=== PATIENT | male | born 1995 | race Caucasian/White ===

== ENCOUNTER 2017-08-15 20:41 | Emergency (ER) | payer SELFPAY ==
[~2017-08-15] VITALS: Ht 167.6 cm; Wt 74.0 kg
[~2017-08-15 20:41] MED LIST: CORTI10A RIGHT EAR; EPIP0.3I; FLOVENT110 MCG/A; PENI500T PO; TYLE3 PO
[2017-08-15 20:42] VITALS: BP 139/74; PULSE 83; RESP 16; TEMP 99.6; O2SAT 100
[2017-08-15] MEDS ORDERED: SODIUM CHLOR 0.9% 1000 ML INJ 1,000 ML IV SCH (22:27)
[2017-08-15] MEDS ORDERED: DEXAMETHASONE SOD PHOS 4 MG/ML VIAL IVP ONE (22:30)
[2017-08-15] MEDS ORDERED: KETOROLAC TROMETHAMINE 30 MG/ML (IVP) VIAL IVP ONE (22:30)
[2017-08-15] MEDS ORDERED: RESP: ALBUTEROL 2.5 MG/IPRATROPIUM 0.5 MG NEB (SCH) INH ONE (22:30)
[2017-08-15] MEDS ORDERED: ONDANSETRON HCL 4 MG/2 ML VIAL IVP ONE (22:30)
--- NOTE | 2017-08-15 22:34 | PD ---
HPI Chief Complaint: GI Complaint Time Seen by Provider: 22:24 Travel History International Travel<30 days: No Contact w/Intl Traveler<30days: No Traveled to known affect area: No History of Present Illness HPI 22-year-old male that presents to the ED for evaluation of cold-like symptoms. Patient has had sore throat, nausea, body aches as well as chest discomfort with cough and congestion and shortness of breath for the past week. Per patient is not getting better. Per patient his been doing [id number] remedies with some relief but it seems to not improving in his missed work for about a week now. He denies any sick contacts. He does have a history of asthma. Per patient she is also starting to feel dizzy and weak. He denies feeling that he is having an asthma attack. He does state that he feels that he cannot breathe because of the nose or congestion as well as sometimes with exertion he gets short of breath. He states that he has a lot of pain in his chest secondary to his cough. States having some fevers chills and sweats. Has been vomited multiple times and feels now she had a. No abdominal pain. No urinary or bowel movement issues. Allergies to seafood. Has not seen anybody for this. Pain per patient is 5 out of 10 and worse with coughing. PFSH Past Medical History Asthma: Yes Diminished Hearing: No Respiratory: Yes (ASTHMA) Immunizations Current: Yes Past Surgical History Surgical History: No Previous Surgery Social History Alcohol Use: No Tobacco Use: Yes (BLACK AND MILDS OCC) Substance Use: No Allergies-Medications (Allergen,Severity, Reaction): Uncoded Allergies: SEA FOODS (Allergy, Mild, 06/09/07) Reported Meds & Prescriptions Reported Meds & Active Scripts Active Pen Vk (Penicillin V Potassium) 500 Mg Tab 500 Mg PO QID Tylenol #3 (Acetaminophen/Codeine Phosphate) 300 Mg/30 Mg Tab 1 Tab PO Q4HPRN FOR PAIN Cortisporin Otic Solution (Neomycin/Polymyxin/Hydrocortisone) 10 Ml Soln 3 Drop RIGHT EAR QID 7 Days FOR 10 DAYS Reported Epipen (Epinephrine HCl) 0.3 Mg Inj Flovent HFA (Fluticasone Propionate) 110 Mcg Aero Review of Systems Except as stated in HPI: all other systems reviewed are Neg Physical Exam Narrative GENERAL: SKIN: Warm and dry. HEAD: Atraumatic. Normocephalic. EYES: Pupils equal and round. No scleral icterus. No injection or drainage. ENT: No nasal bleeding or discharge. Mucous membranes pink and moist. Tongue is midline. Tonsils are enlarged with erythema bilaterally. Mild exudate not especially on the right tonsil. Both nostrils are patent with some sinus congestion noted. No sinus tenderness. No lymphadenopathy or meningeal signs noted. NECK: Trachea midline. No JVD. CARDIOVASCULAR: Regular rate and rhythm. No murmurs, S3, S4. RESPIRATORY: No accessory muscle use. Mild wheezing heard in the lower lung alicea. Breath sounds equal bilaterally. GASTROINTESTINAL: Abdomen soft, non-tender, nondistended. Hepatic and splenic margins not palpable. MUSCULOSKELETAL: Extremities without clubbing, cyanosis, or edema. No obvious deformities. NEUROLOGICAL: Awake and alert. No obvious cranial nerve deficits. Motor grossly within normal limits. Five out of 5 muscle strength in the arms and legs. Normal speech. PSYCHIATRIC: Appropriate mood and affect; insight and judgment normal. Data Data Last Documented VS Vital Signs Date Time Temp Pulse Resp B/P (MAP) Pulse Ox O2 Delivery O2 Flow Rate FiO2 08/15/17 20:42 99.6 83 16 139/74 (95) 100 Room Air Orders Orders Complete Blood Count With Diff (08/15/17 22:27) Basic Metabolic Panel (Bmp) (08/15/17 22:27) Magnesium (Mg) (08/15/17 22:27) Group A Rapid Strep Screen (08/15/17 22:27) Influenzae A/B Antigen (08/15/17 22:27) Chest, Single Ap (08/15/17 22:27) Iv Access Insert/Monitor (08/15/17 22:27) Ondansetron Inj (Zofran Inj) (08/15/17 22:30) Sodium Chlor 0.9% 1000 Ml Inj (Ns 1000 M (08/15/17 22:27) Ketorolac Inj (Toradol Inj) (08/15/17 22:30) Dexamethasone Inj (Decadron Inj) (08/15/17 22:30) Duoneb X 1 Single Dose (08/15/17 22:30) MDM Medical Decision Making Medical Screen Exam Complete: Yes Emergency Medical Condition: Yes Medical Record Reviewed: Yes Differential Diagnosis Strep throat versus pharyngitis versus tonsillitis versus influenza versus pneumonia versus dehydration versus nausea and vomiting Narrative Course 22-year-old male that presents to the ED for evaluation of cold like symptoms. Patient was properly examined and was found to have signs and symptoms which appear to be more consistent with strep throat. He does have other complaints as well and they're likely all related to the same. At this time I do recommend labs and imaging to better evaluate the patient. He does appear to be a little bit dry. She will be given fluids. Given nausea medication as well as Toradol and dexamethasone to help with the swelling and pain. Case will be sent out to my attending pending disposition. Max Duran Aug 15, 2017 22:34
--- NOTE | 2017-08-15 22:49 | RADRPT ---
EXAM DATE/TIME: 08/15/2017 22:38 [place] COMPARISON: No previous studies available for comparison. INDICATIONS : Shortness of breath. MEDICAL HISTORY : None. SURGICAL HISTORY : None. ENCOUNTER: Initial ACUITY: 1 day PAIN SCORE: 0/10 LOCATION: Bilateral chest FINDINGS: A single view of the chest demonstrates the lungs to be symmetrically aerated without evidence of mas s, infiltrate or effusion. The cardiomediastinal contours are unremarkable. Osseous structures are intact. CONCLUSION: No acute disease. Broderick Calix MD on August 15, 2017 at 22:47 Board Certified Radiologist. This report was verified electronically.
[2017-08-15 23:16] LABS: AUTOMATED NEUTROPHIL # 8.5 TH/MM3 (1.8-7.7); BASOPHIL # 0.1 TH/MM3 (0-0.2); BASOPHIL % 0.5 % (0.0-2.0); EOSINOPHIL % 7.1 % (0.0-4.0); HEMATOCRIT 43.3 % (39.0-51.0); HEMO FLAGS DIFF FINAL; LYMPH % 20.4 % (9.0-44.0); LYMPHOCYTE # 2.8 TH/MM3 (1.0-4.8); MEAN CELL VOLUME 90.2 FL (80.0-100.0); MEAN CORPUSCULAR HEMOGLOBIN 30.2 PG (27.0-34.0); MEAN CORPUSCULAR HGB CONC 33.5 % (32.0-36.0); MONO % 10.7 % (0.0-8.0); NEUT % 61.3 % (16.0-70.0); PLATELET COUNT 309 TH/MM3 (150-450); RED BLOOD COUNT 4.81 MIL/MM3 (4.50-5.90); RED CELL DISTRIBUTION WIDTH 12.6 % (11.6-17.2); WHITE BLOOD COUNT 13.8 TH/MM3 (4.0-11.0)
--- NOTE | 2017-08-15 23:20 | PD ---
Data Data Last Documented VS Vital Signs Date Time Temp Pulse Resp B/P (MAP) Pulse Ox O2 Delivery O2 Flow Rate FiO2 08/15/17 20:42 99.6 83 16 139/74 (95) 100 Room Air Orders Orders Complete Blood Count With Diff (08/15/17 22:27) Basic Metabolic Panel (Bmp) (08/15/17 22:27) Magnesium (Mg) (08/15/17 22:27) Group A Rapid Strep Screen (08/15/17 22:27) Influenzae A/B Antigen (08/15/17 22:27) Chest, Single Ap (08/15/17 22:27) Iv Access Insert/Monitor (08/15/17 22:27) Ondansetron Inj (Zofran Inj) (08/15/17 22:30) Sodium Chlor 0.9% 1000 Ml Inj (Ns 1000 M (08/15/17 22:27) Ketorolac Inj (Toradol Inj) (08/15/17 22:30) Dexamethasone Inj (Decadron Inj) (08/15/17 22:30) Albuterol-Ipratropium Neb (Duoneb Neb) (08/15/17 22:30) Strep Culture (Group A) (08/15/17 22:30) Labs Laboratory Tests Test 08/15/17 22:30 White Blood Count 13.8 TH/MM3 Red Blood Count 4.81 MIL/MM3 Hemoglobin 14.5 GM/DL Hematocrit 43.3 % Mean Corpuscular Volume 90.2 FL Mean Corpuscular Hemoglobin 30.2 PG Mean Corpuscular Hemoglobin Concent 33.5 % Red Cell Distribution Width 12.6 % Platelet Count 309 TH/MM3 Mean Platelet Volume 7.7 FL Neutrophils (%) (Auto) 61.3 % Lymphocytes (%) (Auto) 20.4 % Monocytes (%) (Auto) 10.7 % Eosinophils (%) (Auto) 7.1 % Basophils (%) (Auto) 0.5 % Neutrophils # (Auto) 8.5 TH/MM3 Lymphocytes # (Auto) 2.8 TH/MM3 Monocytes # (Auto) 1.5 TH/MM3 Eosinophils # (Auto) 1.0 TH/MM3 Basophils # (Auto) 0.1 TH/MM3 CBC Comment DIFF FINAL Differential Comment Blood Urea Nitrogen 13 MG/DL Creatinine 0.86 MG/DL Random Glucose 98 MG/DL Calcium Level 8.8 MG/DL Magnesium Level 2.2 MG/DL Sodium Level 138 MEQ/L Potassium Level 3.9 MEQ/L Chloride Level 103 MEQ/L Carbon Dioxide Level 29.1 MEQ/L Anion Gap 6 MEQ/L Estimat Glomerular Filtration Rate 112 ML/MIN [facility] Medical Record Reviewed: Yes Supervised Visit with STEPHANIE: No Narrative Course During the course of the patients emergency department visit, the patients history, examination, and differential diagnosis were reviewed with the patient. The patient had IV access obtained and blood work sent for analysis. The patient was placed on a bus driver/monitor with oximetry and blood pressure monitoring. The patient was initially evaluated by Max, the physician geriatric assistant. Please see his complete history and physical. The patient's case was checked out to me by him at the conclusion of his shift. The patient was initially provided normal saline 1 L IV fluid bolus, a DuoNeb 1 , dexamethasone 10 mg IV, Toradol 30 mg IV, Zofran 4 mg IV. The patients laboratory studies were reviewed and remarkable for a white count of 13.8, hemoglobin 14.5, platelets 309 with 10.7 monocytes. Basic metabolic profile is unremarkable, magnesium 2.2 influenza antigen is negative, rapid strep test is negative. Radiology studies were reviewed and remarkable for a chest x-ray that shows no acute cardiopulmonary disease. Given the patient's prolonged respiratory symptoms and history of asthma with upper respiratory congestion for over a week, the patient will be treated with a course of antibiotic and a short course of steroid. The patient is resting comfortably and feels better, is alert and in no distress. The patients results and examination findings were discussed with the patient. The repeat examination is unremarkable and benign. The history, exam, diagnostic testing, and current condition do not suggest any significant pathology to warrant further testing, continued ED treatment, admission, or surgical evaluation at this point. The vital signs have been stable. The patient does not have uncontrollable pain, intractable vomiting, or other significant symptoms. The patient's condition is stable and appropriate for discharge. The patient will pursue further outpatient evaluation with a primary care physician or other designated or consulting physician as indicated in the discharge instructions. The patient expressed understanding and was agreeable with this plan. Diagnosis Primary Impression: Upper respiratory infection Qualified Codes: J06.9 - Acute upper respiratory infection, unspecified Additional Impression: Asthma exacerbation Referrals: Primary Care Physician Patient Instructions: Asthma (ED), General Instructions, Upper Respiratory Infection (ED) Med/Other Pt SpecificInfo: Prescription(s) given Scripts Prednisone (Prednisone) 20 Mg Tab 20 MG PO BID for 5 Days, #10 TAB 0 Refills Prov: Marianna Castañeda MD 08/16/17 Amoxicillin-Clavulanate (Augmentin) 875-125 Mg Tab 1 TAB PO BID for Infection, #20 TAB 0 Refills Prov: Marianna Castañeda MD 08/16/17 Disposition: 01 DISCHARGE HOME Condition: Stable Marianna Castañeda MD Aug 15, 2017 23:19
[2017-08-15 23:31] LABS: BICARBONATE 29.1 MEQ/L (21.0-32.0); MAGNESIUM 2.2 MG/DL (1.5-2.5); POTASSIUM 3.9 MEQ/L (3.5-5.1)
[2017-08-16] MEDS ORDERED: AUGM875T3 PO (00:07)
[2017-08-16] MEDS ORDERED: PRED20 PO (00:07)
[2017-08-16 00:33] VITALS: BP 131/78
== END 2017-08-16 00:35 | disposition home or self-care (01) ==
LOC: NEPE 20:41
DX: J06.9 Acute upper respiratory infection, unspecified (principal); J45.901 Unspecified asthma with (acute) exacerbation; R11.0 Nausea; Z72.0 Tobacco use
CPT/HCPCS: 71010; 80048; 83735; 85025; 87081; 87804; 87880; 94664; 96374; 96375; 99284; J1100; J1885; J2405; J7030

== ENCOUNTER 2018-03-07 00:25 | Emergency (ER) | payer SELFPAY ==
[~2018-03-07] VITALS: Ht 167.6 cm; Wt 75.0 kg
[~2018-03-07 00:25] MED LIST changes: +AUGM875T3 PO; +PRED20 PO
[2018-03-07 00:28] VITALS: BP 139/71; PULSE 76; RESP 16; TEMP 97.7; O2SAT 100
[2018-03-07] MEDS ORDERED: NORC5TAB PO (01:11)
[2018-03-07] MEDS ORDERED: AUGM875T3 PO (01:11)
[2018-03-07] MEDS ORDERED: IBUP1TAB7 PO (01:11)
--- NOTE | 2018-03-07 01:11 | PD ---
HPI Chief Complaint: ENT Complaint Time Seen by Provider: 00:44 Travel History International Travel<30 days: No Contact w/Intl Traveler<30days: No Traveled to known affect area: No History of Present Illness HPI 22-year-old male with no significant medical history presents emergency department for evaluation of bleeding from his right ear. Patient states about 3 days ago he began having some pain and ringing in his right ear. He denies any trauma. He has not had any fever or chills. He states he does not put anything in his ears. He states today he noticed when he was lying on his side the blood came out of his right ear. He has felt a little off balance today as though the room was spinning. He has no other symptoms to report. [facility] Past Medical History Asthma: Yes Diminished Hearing: No Respiratory: Yes (ASTHMA) Immunizations Current: Yes Tetanus Vaccination: < 5 Years Influenza Vaccination: No Social History Alcohol Use: No Tobacco Use: Yes (BLACK AND MILDS OCC) Substance Use: No Allergies-Medications (Allergen,Severity, Reaction): Uncoded Allergies: SEA FOODS (Allergy, Mild, 06/09/07) Reported Meds & Prescriptions Reported Meds & Active Scripts Active [place] (Hydrocodone-Acetaminophen) 5 Mg-325 Mg Tab 1 Tab PO Q6H PRN Ibuprofen 800 Mg Tab 800 Mg PO Q8H PRN Augmentin (Amoxicillin-Clavulanate) 875-125 Mg Tab 1 Tab PO BID Prednisone 20 Mg Tab 20 Mg PO BID 5 Days Augmentin (Amoxicillin-Clavulanate) 875-125 Mg Tab 1 Tab PO BID Pen Vk (Penicillin V Potassium) 500 Mg Tab 500 Mg PO QID Tylenol #3 (Acetaminophen/Codeine Phosphate) 300 Mg/30 Mg Tab 1 Tab PO Q4HPRN FOR PAIN Cortisporin Otic Solution (Neomycin/Polymyxin/Hydrocortisone) 10 Ml Soln 3 Drop RIGHT EAR QID 7 Days FOR 10 DAYS Reported Epipen (Epinephrine HCl) 0.3 Mg Inj Flovent HFA (Fluticasone Propionate) 110 Mcg Aero Review of Systems Except as stated in HPI: all other systems reviewed are Neg Physical Exam Narrative GENERAL: Well-nourished, well-developed male patient in no acute distress SKIN: Focused skin assessment warm/dry. HEAD: Normocephalic. No mastoid tenderness EARS: Bilateral pinnae and external canals appear within normal limits. Left tympanic membranes without erythema, dullness or perforation. Right tympanic membrane has a perforation extending from 9:00 to 11:00. There is dried blood in the canal. EYES: No scleral icterus. No injection or drainage. ENT: Mucosa pink and moist. No erythema or exudates. No uvular edema. No uvular , palatal, or tonsillar deviation. Airway patent. Nasal turbinates appear normal without nasal blood, purulent drainage or septal hematoma. NECK: Supple, trachea midline. No JVD or lymphadenopathy. CARDIOVASCULAR: Regular rate and rhythm without murmurs, gallops, or rubs. RESPIRATORY: Breath sounds equal bilaterally. No accessory muscle use. Data Data Last Documented VS Vital Signs Date Time Temp Pulse Resp B/P (MAP) Pulse Ox O2 Delivery O2 Flow Rate FiO2 03/07/18 00:28 97.7 76 16 139/71 (93) 100 Orders Orders Ed Discharge Order (03/07/18 01:02) MDM Medical Decision Making Medical Screen Exam Complete: Yes Emergency Medical Condition: Yes Medical Record Reviewed: Yes Differential Diagnosis Otitis media versus otitis externa versus tympanic membrane trauma versus perforation versus rupture Narrative Course 22-year-old male presents emergency department for evaluation of bleeding from his right ear. Physical exam is consistent with a tympanic membrane rupture. Patient be started on oral antibiotics. He is encouraged to follow-up with the primary care provider, seek rn clinical research evaluation, and return immediately with any acute worsening symptoms. Diagnosis Primary Impression: Ruptured tympanic membrane Qualified Codes: H72.91 - Unspecified perforation of tympanic membrane, right ear Referrals: Ear / Nose / Throat Specialist Primary Care Physician Patient Instructions: General Instructions, Ruptured Eardrum (ED) Departure Forms: Tests/Procedures, Work Release Enter return to work date: Mar 08, 2018 Additional Instructions: AVOID WATER SUBMERSION FOLLOW UP WITH SIDEROGRAPHER RETURN TO ED WITH ACUTE WORSENING OF SYMPTOMS Med/Other Pt SpecificInfo: Prescription(s) given Scripts Hydrocodone-Acetaminophen ([place]) 5 Mg-325 Mg Tab 1 TAB PO Q6H Y for PAIN GREATER THAN 6, #6 TAB 0 Refills Prov: Alva Montano 03/07/18 Ibuprofen (Ibuprofen) 800 Mg Tab 800 MG PO Q8H Y for PAIN SCALE 1 TO 10, #30 TAB 0 Refills Prov: Alva Montano 03/07/18 Amoxicillin-Clavulanate (Augmentin) 875-125 Mg Tab 1 TAB PO BID for Infection, #20 TAB 0 Refills Prov: Alva Montano 03/07/18 Disposition: 01 DISCHARGE HOME Condition: Stable Alva Montano Mar 07, 2018 01:11
== END 2018-03-07 01:17 | disposition home or self-care (01) ==
LOC: NEPD 00:25
DX: H72.91 Unspecified perforation of tympanic membrane, right ear (principal); J45.909 Unspecified asthma, uncomplicated; Z72.0 Tobacco use; Z79.899 Other long term (current) drug therapy
CPT/HCPCS: 99283

== ENCOUNTER 2018-05-09 00:09 | Emergency (ER) | payer SELFPAY ==
[~2018-05-09 00:09] MED LIST changes: +IBUP1TAB7 PO; +NORC5TAB PO
[2018-05-09 00:10] VITALS: BP 139/71; PULSE 88; RESP 18; TEMP 98.3; O2SAT 100
[2018-05-09] MEDS ORDERED: TETANUS/DIPHTHERIA TOXOID ADULT 0.5 ML VIAL IM ONE (00:30)
[2018-05-09] MEDS ORDERED: IBUPROFEN 600 MG TAB PO ONE (00:30)
[2018-05-09] MEDS ORDERED: AMOXICILLIN/CLAVULANATE K 875 MG TAB PO ONE (00:30)
[2018-05-09] MEDS ORDERED: AUGM875T3 PO (00:33)
[2018-05-09] MEDS ORDERED: IBUP-232 PO (00:33)
--- NOTE | 2018-05-09 00:34 | PD ---
HPI Chief Complaint: Bite or Sting Time Seen by Provider: 00:16 Travel History International Travel<30 days: No Contact w/Intl Traveler<30days: No Traveled to known affect area: No History of Present Illness HPI 23-year-old male complains of dog bite to the hand. Patient states that the dog was a house dog. Patient states that he got dog bites to both hands tonight. Patient states that he has burning pains to both hands. Patient denies any pain radiation. Patient denies any other injury. On a scale of 1- 10 the pain is a 7. Patient states that he is not up-to-date with TD booster. PFSH Past Medical History Asthma: Yes Diminished Hearing: No Respiratory: Yes (ASTHMA) Immunizations Current: Yes Social History Alcohol Use: No Tobacco Use: Yes (BLACK AND MILDS PD) Substance Use: No Allergies-Medications (Allergen,Severity, Reaction): Uncoded Allergies: SEA FOODS (Allergy, Mild, 06/09/07) Reported Meds & Prescriptions Reported Meds & Active Scripts Active Ibuprofen 600 Mg Tab 600 Mg PO TID Augmentin (Amoxicillin-Clavulanate) 875-125 Mg Tab 1 Tab PO BID [place] (Hydrocodone-Acetaminophen) 5 Mg-325 Mg Tab 1 Tab PO Q6H PRN Ibuprofen 800 Mg Tab 800 Mg PO Q8H PRN Augmentin (Amoxicillin-Clavulanate) 875-125 Mg Tab 1 Tab PO BID Prednisone 20 Mg Tab 20 Mg PO BID 5 Days Augmentin (Amoxicillin-Clavulanate) 875-125 Mg Tab 1 Tab PO BID Pen Vk (Penicillin V Potassium) 500 Mg Tab 500 Mg PO QID Tylenol #3 (Acetaminophen/Codeine Phosphate) 300 Mg/30 Mg Tab 1 Tab PO Q4HPRN FOR PAIN Cortisporin Otic Solution (Neomycin/Polymyxin/Hydrocortisone) 10 Ml Soln 3 Drop RIGHT EAR QID 7 Days FOR 10 DAYS Reported Epipen (Epinephrine HCl) 0.3 Mg Inj Flovent HFA (Fluticasone Propionate) 110 Mcg Aero Review of Systems General / Constitutional: No: Fever Eyes: No: Visual changes HENT: No: Headaches Cardiovascular: No: Chest Pain or Discomfort Respiratory: No: Shortness of Breath Gastrointestinal: No: Abdominal Pain Genitourinary: No: Dysuria Musculoskeletal: Positive: Pain Skin: No Rash Neurologic: No: Weakness Psychiatric: No: Depression Endocrine: No: Polydipsia Hematologic/Lymphatic: No: Easy Bruising Physical Exam Narrative GENERAL: Well-nourished, well-developed patient. SKIN: Focused skin assessment warm/dry. HEAD: Normocephalic. EYES: No scleral icterus. No injection or drainage. NECK: Supple, trachea midline. No JVD or lymphadenopathy. CARDIOVASCULAR: Regular rate and rhythm without murmurs, gallops, or rubs. RESPIRATORY: Breath sounds equal bilaterally. No accessory muscle use. GASTROINTESTINAL: Abdomen soft, non-tender, nondistended. MUSCULOSKELETAL: No cyanosis, or edema. BACK: Nontender without obvious deformity. No CVA tenderness. Patient has multiple superficial lacerations involving both hands. No evidence of ligament tendon joint involvement. Data Data Last Documented VS Vital Signs Date Time Temp Pulse Resp B/P (MAP) Pulse Ox O2 Delivery O2 Flow Rate FiO2 05/09/18 00:10 98.3 88 18 139/71 (93) 100 Orders Orders Hand, Complete ([id number]) (05/09/18 00:22) Hand, Complete ([id number]) (05/09/18 00:22) Tetanus/Diphtheria Tox Adult (Tetanus/Di (05/09/18 00:30) Amoxicil-Clavulanate (Augmentin) (05/09/18 00:30) Ibuprofen (Motrin) (05/09/18 00:30) Ed Discharge Order (05/09/18 00:55) MDM Medical Decision Making Medical Screen Exam Complete: Yes Emergency Medical Condition: Yes Differential Diagnosis Differential diagnosis including laceration, ligament tendon joint involvement, bony injury. Narrative Course 23-year-old male with dog bites to both. Multiple superficial lacerations to the fingers. Td booster given. Augmentin 875 mg p.o. given. Motrin 600 mg p.o. given. Diagnosis Primary Impression: Laceration of fingers without complication Qualified Codes: S61.219A - Laceration without foreign body of unspecified finger without damage to nail, initial encounter Additional Impression: Dog bite of finger Qualified Codes: S61.259A - Open bite of unspecified finger without damage to nail, initial encounter; W54.0XXA - Bitten by dog, initial encounter Patient Instructions: General Instructions Additional Instructions: Augmentin as directed. Ibuprofen as needed for pain. Wound care daily. Follow -up with personal physician. Return if increasing redness or swelling. Contact animal control for dog to be checked for rabies. Med/Other Pt SpecificInfo: Prescription(s) given Scripts Ibuprofen (Ibuprofen) 600 Mg Tab 600 MG PO TID for Pain, #30 TAB 0 Refills Prov: Samm Tomlin MD 05/09/18 Amoxicillin-Clavulanate (Augmentin) 875-125 Mg Tab 1 TAB PO BID for Infection, #14 TAB 0 Refills Prov: Samm Tomlin MD 05/09/18 Disposition: 01 DISCHARGE HOME Condition: Stable Samm Tomlin MD May 09, 2018 00:34
--- NOTE | 2018-05-09 00:54 | RADRPT ---
EXAM DATE: 05/09/2018 12:52 AM EDT AGE/SEX: 23 years / Male INDICATIONS: Right hand, second digit pain after dog bite today. CLINICAL DATA: This is the patient's initial encounter. Patient reports that signs and symptoms have been present for 1 day and indicates a pain score of 5/10. MEDICAL/SURGICAL HISTORY: None. None. COMPARISON: No prior exams available for comparison. FINDINGS: Bony structures are intact and in normal alignment. Osseous density is normal. Soft tissues are unre markable. No radiopaque foreign bodies seen. CONCLUSION: Negative examination Electronically signed by: Eliel Umana MD 05/09/2018 12:53 AM EDT
== END 2018-05-09 01:16 | disposition home or self-care (01) ==
LOC: NEPD 00:09
DX: S61.219A Laceration without foreign body of unspecified finger without damage to nail, initial encounter (principal); S61.451A Open bite of right hand, initial encounter; W54.0XXA Bitten by dog, initial encounter; J45.909 Unspecified asthma, uncomplicated; F17.210 Nicotine dependence, cigarettes, uncomplicated; Z23 Encounter for immunization
CPT/HCPCS: 73130; 90471; 90714